=== PATIENT | female | born 1965 | race Caucasian/White ===

== ENCOUNTER 2019-03-24 06:18 | Day surgery (SDC) | payer OTHER ==
[2019-03-23 11:48] VITALS: BMI 28.1
[~2019-03-24] VITALS: Ht 160 cm; Wt 71.6 kg
[2019-03-24] VITALS (10 sets, daily range): BP systolic 96–128; BP diastolic 57–77; PULSE 58–71; RESP 15–23; Ht 160 cm; Wt 71.6 kg
[~2019-03-24 06:18] MED LIST: CEFAZOLIN 2 GM/50 ML (PMX) 50 ML IVPB SCH; OMEP40CA6 ORAL; SERT-165 ORAL
[2019-03-24] MEDS ORDERED: FENTAnyl 50 MCG/ML VIAL ONE (07:35)
[2019-03-24] MEDS ORDERED: BUPIVACAINE 0.25% (MPF) 30 ML INJ ONE (08:21)
[2019-03-24] MEDS ORDERED: LIDOCAINE 1% (MPF) 30 ML INJ ONE (08:22)
[2019-03-24] MEDS ORDERED: BACITRACIN/POLYMYXIN 28.35 GM OINT TOP ONE (08:40)
[2019-03-24] MEDS ORDERED: PROPOFOL 60 ML ONE (08:40)
[2019-03-24] MEDS ORDERED: BACITRACIN 0.9 GM OINT ONE (08:40)
[2019-03-24] MEDS ORDERED: LIDOCAINE 2% (SDV) 5 ML INJ ONE (08:40)
[2019-03-24] MEDS ORDERED: FENTAnyl 50 MCG/ML VIAL IV PRN ×2 (09:30)
[2019-03-24] MEDS ORDERED: LABETALOL HCL 20MG INJ IV PRN (09:30)
[2019-03-24] MEDS ORDERED: OXYCODONE/ACETAMINOPHEN (5/325) TAB PO PRN ×2 (09:30)
[2019-03-24] MEDS ORDERED: ONDANSETRON 4 MG INJ IV PRN (09:30)
== END 2019-03-24 10:08 | disposition home or self-care (01) ==
LOC: SDS 06:18
PROVIDERS: ATTEND Orthopaedic Surgery
DX: G56.01 Carpal tunnel syndrome, right upper limb (principal); M65.311 Trigger thumb, right thumb; E66.9 Obesity, unspecified
CPT/HCPCS: 26055; 64721; 80048; J0690; J3010; Z7610